=== PATIENT | female | born 1990 ===

== ENCOUNTER 2017-07-24 06:26 | Inpatient (IN) | payer BC ==
[~2017-07-24] VITALS: Ht 177.8 cm; Wt 84.1 kg
[2017-08-05] MEDS ORDERED: COLACE 100100 MG/CAP PO (19:23)
[2017-08-05] MEDS ORDERED: PRENATAL1 TA7 PO (19:23)
[2017-08-05 19:30] VITALS: BP 119/72; PULSE 86; TEMP 98
[2017-08-05 20:00] VITALS: BP 129/76; PULSE 73
[2017-08-05 20:37] LABS: BASO % 0.5 % (0.0-2.0); EOS # 0.3 (0.0-0.7); EOS % 3.1 % (0-4.0); GRAN % 58.7 % (42.2-75.2); HEMOGLOBIN 12.5 g/dl (12.5-16.0); LYMPH # 2.2 (1.2-3.4); LYMPH % 25.5 % (20.0-51.0); MEAN CELL VOLUME 84 fl (80.0-100.0); MEAN CORPUSCULAR HEMOGLOBIN 29 pg (27.0-31.0); MEAN CORPUSCULAR HGB CONC 34 g/dl (33.0-37.0); MONO # 0.9 (0.1-0.6); MONO % 11.1 % (1.7-9.3); PLATELET COUNT 121 K/mm3 (130-400); RED BLOOD COUNT 4.33 M/mm3 (4.10-5.30); REDCELL DISTRIBUTION WIDTH-CV 13.3 % (11.5-14.5)
[2017-08-05 20:56] LABS: HEMATOCRIT 36.5 % (37.0-47.0)
[2017-08-05 21:00] VITALS: BP 121/73; PULSE 78; TEMP 98.4
[2017-08-05 21:30] VITALS: BP 116/66; PULSE 73
[2017-08-05 22:10] VITALS: BP 108/71; PULSE 88
[2017-08-05 23:00] VITALS: TEMP 98.1
[2017-08-06] VITALS (71 sets, daily range): BP systolic 88–132; BP diastolic 52–82; PULSE 62–133; TEMP 97.6–103.4
[2017-08-06] MEDS ORDERED: MOTRIN 800800 MG/TAB PO (10:11)
[2017-08-06] MEDS ORDERED: PERCOCET 325 MG1 TA2 PO (10:11)
[2017-08-07] VITALS (12 sets, daily range): BP systolic 100–126; BP diastolic 57–86; PULSE 82–129; TEMP 97.8–99.2
[2017-08-07 07:01] LABS: HEMOGLOBIN 10.6 g/dl (12.5-16.0); MEAN CELL VOLUME 87 fl (80.0-100.0); MEAN CORPUSCULAR HEMOGLOBIN 29 pg (27.0-31.0); MEAN CORPUSCULAR HGB CONC 33 g/dl (33.0-37.0); MEAN PLATELET VOLUME 12.3 fl (7.4-10.4); PLATELET COUNT 95 K/mm3 (130-400); REDCELL DISTRIBUTION WIDTH-CV 13.7 % (11.5-14.5)
[2017-08-07 07:06] LABS: HEMATOCRIT 32.2 % (37.0-47.0)
[2017-08-07 07:21] LABS: BAND 48 % (0-10); LYMPHOCYTE 6 % (20.0-51.0); METAMYELOCYTE 2 % (0-0); NEUTROPHILS 41 % (42.0-75.2)
[2017-08-07 07:22] LABS: PLATELET ESTIMATE DECREASED (NORMAL)
[2017-08-08 06:56] LABS: HEMOGLOBIN 10.2 g/dl (12.5-16.0); MEAN CELL VOLUME 88 fl (80.0-100.0); MEAN CORPUSCULAR HEMOGLOBIN 29 pg (27.0-31.0); MEAN CORPUSCULAR HGB CONC 33 g/dl (33.0-37.0); PLATELET COUNT 100 K/mm3 (130-400); RED BLOOD COUNT 3.56 M/mm3 (4.10-5.30); REDCELL DISTRIBUTION WIDTH-CV 13.8 % (11.5-14.5)
[2017-08-08 07:03] LABS: HEMATOCRIT 31.2 % (37.0-47.0)
[2017-08-08 08:02] VITALS: BP 108/56; PULSE 78; TEMP 97.4
[2017-08-08 09:29] LABS: BAND 30 % (0-10); EOSINOPHIL 1 % (0-4); LYMPHOCYTE 5 % (20.0-51.0); METAMYELOCYTE 1 % (0-0); NEUTROPHILS 58 % (42.0-75.2); PLATELET ESTIMATE DECREASED (NORMAL)
[2017-08-08 09:31] LABS: HYPOCHROMIA 1+
== END 2017-08-08 16:30 | disposition home or self-care (01) | DRG 774 ==
LOC: LDRO 08-01 06:26 → EDSTATUS 08-01 07:06 → LDR 08-05 07:06 → OB 08-05 18:57 → LDR 08-05 18:57 → OB 08-07 05:40
PROVIDERS: Obstetrics & Gynecology
PROC: 3E0P7VZ Introduction of Hormone into Female Reproductive, Via Natural or Artificial Opening (ICD-10-PCS; 2017-08-05)
PROC: 3E033VJ Introduction of Other Hormone into Peripheral Vein, Percutaneous Approach (ICD-10-PCS; 2017-08-05)
PROC: 10907ZC Drainage of Amniotic Fluid, Therapeutic from Products of Conception, Via Natural or Artificial Opening (ICD-10-PCS; 2017-08-05)
PROC: 10E0XZZ Delivery of Products of Conception, External Approach (ICD-10-PCS; principal; 2017-08-06)
PROC: 0KQM0ZZ Repair Perineum Muscle, Open Approach (ICD-10-PCS; 2017-08-06)
DX: O75.3 Other infection during labor (principal); O99.12 Other diseases of the blood and blood-forming organs and certain disorders involving the immune mechanism complicating childbirth; Z3A.40 40 weeks gestation of pregnancy; Z37.0 Single live birth; O70.1 Second degree perineal laceration during delivery; O62.2 Other uterine inertia
CPT/HCPCS: J0290; J1580; J2210; J2405; J2550; J2590; J7120

== ENCOUNTER → 2020-03-08 | Outpatient (CLI) | payer BC ==
[~2020-03-08] MED LIST: COLACE 100100 MG/CAP PO; MOTRIN 800800 MG/TAB PO; PERCOCET 325 MG1 TA2 PO; PRENATAL1 TA7 PO
== END ==
LOC: ZCOL.LAB
DX: Z20.822 Contact with and (suspected) exposure to COVID-19 (principal)

== ENCOUNTER 2020-03-09 07:37 | Inpatient (IN) | payer BC ==
[~2020-03-09] VITALS: Ht 177.8 cm; Wt 81.8 kg
[2020-03-09] VITALS (34 sets, daily range): BP systolic 65–144; BP diastolic 34–98; PULSE 63–123; TEMP 98–98.4
--- NOTE | 2020-03-09 07:45 | NUR ---
PATIENT HERE TO LR 5. PATIENT COMPLAINS OF CONTRACTIONS, PATIENT DENIES BLEEDING OR LEAKING OF FLUID. PATIENT HERE WITH , ON EFM, ASSESMENT MIKE MONTES PREFORMED DR COBURN CALLED BY Rhea LE AT 0810
[2020-03-09 10:20] LABS: BASO % 0.4 % (0.0-2.0); EOS # 0.3 (0.0-0.7); EOS % 2.7 % (0-4.0); GRAN # 6.5 (1.4-6.5); GRAN % 68.2 % (42.2-75.2); HEMATOCRIT 39.1 % (37.0-47.0); HEMOGLOBIN 12.9 g/dl (12.5-16.0); LYMPH # 1.9 (1.2-3.4); LYMPH % 19.6 % (20.0-51.0); MEAN CELL VOLUME 87 fl (80.0-100.0); MEAN CORPUSCULAR HEMOGLOBIN 29 pg (27.0-31.0); MEAN CORPUSCULAR HGB CONC 33 g/dl (33.0-37.0); MEAN PLATELET VOLUME 12.3 fl (7.4-10.4); MONO # 0.8 (0.1-0.6); MONO % 8.4 % (1.7-9.3); PLATELET COUNT 114 K/mm3 (130-400); RED BLOOD COUNT 4.51 M/mm3 (4.10-5.30); REDCELL DISTRIBUTION WIDTH-CV 13.5 % (11.5-14.5)
--- NOTE | 2020-03-09 10:48 | NUR ---
[id number] PATIENT OFF EFM WALKING IN ROOM, BOUNCING ON BIRTHING BALL BACK ON EFM AT 1049
--- NOTE | 2020-03-09 12:10 | NUR ---
1200 PATIENT STATES CONTRACTIONS GETTING STRONGER. SVE . WANTS EPIDURAL. LALA AYALA NOW FOR EPIDURAL.
--- NOTE | 2020-03-09 12:44 | NUR ---
1220 SITS UP ON EDGE OF BED FOR EPIDURAL PLACEMENT, LALA AYALA AT BEDSIDE. SEE BELT CHANGER NOTES FOR QUESTIONS AT THIS TIME.
--- NOTE | 2020-03-09 12:47 | NUR ---
1240 EPHEDRINE 15 MG GIVEN BY LAB MANAGER AT THIS TIME. PATIENT FEELS BETTER AT THIS TIME. SUMIT AYALA REMAINS AT [facility].
--- NOTE | 2020-03-09 15:48 | NUR ---
1548 DR COBURN CALLED TO COME FOR DELIVERY NOW
--- NOTE | 2020-03-09 17:41 | NUR ---
[address] COBURN. CORD CLAMPED BY DR COBURN AND BABY TO MOMS CHEST. STRONG CRY NOTED. SMALL REPAIR DONE AT THIS TIME. 1712 PLACENTA DELIVERED AND PITOCIN STARTED AT 333 PER PROTOTCOL. 1720 METHERGINE 0.2 MG IM GIVEN PER DR COBURN ORDER. FUNDUS FIRM.
[2020-03-09] MEDS ORDERED: MOTRIN 800800 MG/TAB PO (18:15)
--- NOTE | 2020-03-09 20:00 | NUR ---
Fundus firm, to right, and bleeding minimal. Patient assisted to edge of bed. Epidural catheter removed. Tip intact. To bathroom with SBA. Voids spontaneously. Alivia care provided, gown changed, and ice pack to perineum. To room 215 via wheelchair. Oriented to room and plan of care. Fundus firm midline, and bleeding minimal. Patient denies questions or needs at this time.
[2020-03-10 00:30] VITALS: BP 108/61; PULSE 79; TEMP 98.4
[2020-03-10 04:15] VITALS: BP 108/73; PULSE 79; TEMP 97.4
[2020-03-10 06:50] VITALS: BP 108/68; PULSE 80; TEMP 97.7
--- NOTE | 2020-03-10 09:03 | NUR ---
Initial visit; Parents thanked Retort Condenser Attendant for offering congratulations and God's blessings for the of their daughter. Retort Condenser Attendant thanked family for choosing [facility].
[2020-03-10 15:55] VITALS: BP 106/62; PULSE 86; TEMP 97.7
--- NOTE | 2020-03-10 18:55 | NUR ---
Discharge instructions reviewed with pt and at the bedside. Both verbalized an understanding, agreed with the plan and state no questions or concerns at this time. Pt discharge home ambulatory with a rear facing car seat secured by parents and transported home via private vehicle.
== END 2020-03-10 18:55 | disposition home or self-care (01) | DRG 807 ==
LOC: LDRO 07:37 → LDR 08:55 → OB 08:55
PROVIDERS: Obstetrics & Gynecology; ADMIT Obstetrics & Gynecology
PROC: 0HQ9XZZ Repair Perineum Skin, External Approach (ICD-10-PCS; principal; 2020-03-09)
PROC: 10E0XZZ Delivery of Products of Conception, External Approach (ICD-10-PCS; 2020-03-09)
DX: O99.02 Anemia complicating childbirth (principal); Z37.0 Single live birth; O69.9XX0 Labor and delivery complicated by cord complication, unspecified, not applicable or unspecified; Z3A.39 39 weeks gestation of pregnancy; O70.0 First degree perineal laceration during delivery
CPT/HCPCS: J2210; J2405; J2590; J3010; J7120